=== PATIENT | female | born 1965 | race Caucasian/White ===

== ENCOUNTER 2016-04-23 17:15 | Emergency (ER) | payer OTHER | END 2016-04-23 17:36 | disposition home or self-care (01) | LOC: ER 17:15 | DX: K08.89 Other specified disorders of teeth and supporting structures (principal); K08.109 Complete loss of teeth, unspecified cause, unspecified class; Z79.84 Long term (current) use of oral hypoglycemic drugs; Z79.4 Long term (current) use of insulin; Z79.899 Other long term (current) drug therapy; Z88.5 Allergy status to narcotic agent ==